=== PATIENT | male | born 1985 | race Caucasian/White ===

== ENCOUNTER 2023-11-26 13:37 | Emergency (ER) | payer BC, OTHER ==
[2023-11-26 13:43] VITALS: TEMP 98.4
[2023-11-26] MEDS: LIDOCAINE 1% INJ 10MG/ML (20 ML MDV) SQ STA (14:04)
[2023-11-26] MEDS: BACITRACIN OINT 1 EACH PACKET TOPICAL ONE (14:05)
--- NOTE | 2023-11-26 14:20 | ED ---
General Adult HPI - General Chief complaint: Wound/Laceration Stated complaint: R hand lac Time Seen by Provider: 11/26/23 13:39 Source: patient, RN notes reviewed Mode of arrival: ambulatory Limitations: no limitations - History of Present Illness Initial comments: 38 year old male presents to the emergency department with chief complaint of right 2nd phalanx and palmar laceration subsequent pneumatic multi tool injury. Denies paresthesia and reports full ROM of phalanges with the exception of the 2nd distal interphangeal joint. He reports recent Tdap vaccine - Related Data Previous Rx's Medication Instructions Recorded Cephalexin [Keflex] 500 mg PO Q6HR #40 cap 11/26/23 Allergies Allergy/AdvReac Type Severity Reaction Status Date / Time diphenhydramine Allergy Rash/Hives Verified 11/26/23 14:51 [From Benadryl] Review of Systems ROS Statement: Those systems with pertinent positive or pertinent negative responses have been documented in the HPI. ROS Other: All systems not noted in ROS Statement are negative. Past Medical History Past Medical History: No Reported History History of Any Multi-Drug Resistant Organisms: None Reported Additional Past Surgical History / Comment(s): Neck surgery Past Psychological History: No Psychological Hx Reported Past Alcohol Use History: Rare Past Drug Use History: Marijuana General Exam Limitations: no limitations General appearance: alert, in no apparent distress Head exam: Present: atraumatic, normocephalic, normal inspection Eye exam: Present: normal appearance, PERRL, EOMI. Absent: scleral icterus, conjunctival injection, periorbital swelling ENT exam: Present: normal exam, mucous membranes moist Neck exam: Present: normal inspection. Absent: tenderness, meningismus, lymphadenopathy Respiratory exam: Present: normal lung sounds bilaterally. Absent: respiratory distress, wheezes, rales, rhonchi, stridor Cardiovascular Exam: Present: regular rate, normal rhythm, normal heart sounds. Absent: systolic murmur, diastolic murmur, rubs, gallop, clicks GI/Abdominal exam: Absent: rigid Extremities exam: Present: normal inspection, full ROM, normal capillary refill. Absent: tenderness, pedal edema, joint swelling, calf tenderness Right Hand Wrist exam: Present: tenderness, swelling, laceration, erythema (Absent ROM to 2nd right DIP joint, full ROM to remaining joints. ), other (2cm x 3cm laceration to 2nd right DIP, 3cm x 4cm laceration to palmar aspect of right hand) Back exam: Present: normal inspection Neurological exam: Present: alert, oriented X3, CN II-XII intact Psychiatric exam: Present: normal affect, normal mood Skin exam: Present: warm, dry, intact, normal color. Absent: rash Course Vital Signs 11/26/23 13:40 Temperature 98.4 F Pulse Rate 118 H Respiratory 18 Rate Blood Pressure 136/83 O2 Sat by Pulse 96 Oximetry Procedures - Laceration Laceration #1 Consent Obtained: verbal consent Indication: laceration Site: hand (Right 2nd finger DIP palmar aspect) Size (cm): 4 Description: linear Depth: simple, single layer Anesthetic Used: lidocaine 1% Anesthesia Technique: local infiltration Pre-repair: wound explored, irrigated extensively Type of Sutures: nylon Size of Sutures: 4-0 Number of Sutures: 5 Technique: simple, interrupted Patient Tolerated Procedure: no complications Laceration #2 Consent Obtained: verbal consent Indication: laceration Site: hand (right palm), other Description: linear Anesthetic Used: lidocaine 1% Anesthesia Technique: local infiltration Pre-repair: wound explored, irrigated extensively Size of Sutures: 4-0 Number of Sutures: 7 Technique: simple, interrupted Patient Tolerated Procedure: no complications Medical Decision Making - Medical Decision Making Was pt. sent in by a medical professional or institution (ISIDRO Alvarez, CHIEF NURSING OFFICER, urgent care, hospital, or snf...) When possible be specific @ -No Did you speak to anyone other than the patient for history (EMS, parent, family, police, friend...)? What history was obtained from this source @ -No Did you review nursing and triage notes (agree or disagree)? Why? @ -I reviewed and agree with nursing and triage notes Were old charts reviewed (outside hosp., previous admission, EMS record, old EKG, old radiological studies, urgent care reports/EKG's, snf records)? Report findings @ -No old charts were reviewed Differential Diagnosis (chest pain, altered mental status, abdominal pain women, abdominal pain men, vaginal bleeding, weakness, fever, dyspnea, syncope, headache, dizziness, GI bleed, back pain, seizure, CVA, palpatations, mental health, musculoskeletal)? @ -Finger laceration, tendon injury, open fracture, hand laceration EKG interpreted by me (3pts min.). @ -None X-rays interpreted by me (1pt min.). @ -X-ray hand shows no acute osseous abnormality CT interpreted by me (1pt min.). @ -None done U/S interpreted by me (1pt. min.). @ -None done What testing was considered but not performed or refused? (CT, X-rays, U/S, labs)? Why? @ -None What meds were considered but not given or refused? Why? @ -None Did you discuss the management of the patient with other professionals (professionals i.e. DrLila, PA, CHIEF NURSING OFFICER, lab, RT, psych nurse, nursing home social worker, sales program coordinator, teacher, fire officer, egg caser)? Give summary @ -No Was smoking cessation discussed for >3mins.? @ -No Was critical care preformed (if so, how long)? @ -No Were there social determinants of health that impacted care today? How? (Homelessness, low income, unemployed, alcoholism, drug addiction, transportation, low edu. Level, literacy, decrease access to med. care, snf, rehab)? @ -No Was there de-escalation of care discussed even if they declined (Discuss DNR or withdrawal of care, Hospice)? DNR status @ -No What co-morbidities impacted this encounter? (DM, HTN, Smoking, COPD, CAD, Cancer, CVA, ARF, Chemo, Hep., AIDS, mental health diagnosis, sleep apnea, morbid obesity)? @ -None Was patient admitted / discharged? Hospital course, mention meds given and route, prescriptions, significant lab abnormalities, going to OR and other pertinent info. @ -Disc charged patient had finger, hand laceration this was repaired patient will follow-up with orthopedics tomorrow as he has tendon involvement patient was splinted, discharged with antibiotics. Undiagnosed new problem with uncertain prognosis? @ -No Drug Therapy requiring intensive monitoring for toxicity (Heparin, Nitro, Insulin, Cardizem)? @ -No Were any procedures done? @ -No Diagnosis/symptom? @ -Finger laceration tendon involvement, hand laceration Acute, or Chronic, or Acute on Chronic? @ -Acute Uncomplicated (without systemic symptoms) or Complicated (systemic symptoms)? @ -Uncomplicated Side effects of treatment? @ -No Exacerbation, Progression, or Severe Exacerbation? @ -No Poses a threat to life or bodily function? How? (Chest pain, [place], [place], pneumonia, PE, COPD, DKA, ARF, appy, cholecystitis, CVA, Diverticulitis, Homicidal, Suicidal, threat to staff... and all critical care pts) @ -No Disposition Clinical Impression: Finger laceration involving tendon, Hand laceration Disposition: HOME SELF-CARE Condition: Good Additional Instructions: Have sutures removed in 10 days. Please return to the Emergency Department if symptoms worsen or any other concerns. Prescriptions: Cephalexin [Keflex] 500 mg PO Q6HR #40 cap Is patient prescribed a controlled substance at d/c from ED?: No Referrals: None,Stated [Primary Care Provider] - 1-2 days Ifrah Fall DO [Doctor of Osteopathic Medicine] - 1-2 days Time of Disposition: 15:18
--- NOTE | 2023-11-26 15:11 | XR ---
EXAMINATION TYPE: XR hand complete RT DATE OF EXAM: 11/26/2023 COMPARISON: NONE HISTORY: Pain and laceration fourth digit TECHNIQUE: Three views are submitted. FINDINGS: The osseous structures are intact. The joint spaces are preserved and there is no acute fracture or dislocation. Chronic deformity of the fifth metacarpal. IMPRESSION: 1. No definite acute fracture or dislocation if symptoms persist, follow-up study in 7 to 10 days wo uld be suggested [facility], , 11/26/2023 3:09 PM
[2023-11-26 15:40] VITALS: BP 124/74; PULSE 86; RESP 16
== END 2023-11-26 15:40 | disposition home or self-care (01) ==
LOC: EC 13:37
CPT/HCPCS: 12002; 99283